=== PATIENT | female | born 1975 | race African-American/Black ===

== ENCOUNTER 2018-11-25 00:44 | Emergency (ER) | payer MEDICAID ==
[~2018-11-25] VITALS: Ht 167.6 cm; Wt 75.0 kg
[2018-11-25] MEDS ORDERED: CLONIDINE 0.1MG TABLET PO ONE (01:15)
[2018-11-25] MEDS ORDERED: LISINOPRIL 10MG TABLET PO ONE (01:15)
[2018-11-25] MEDS ORDERED: IBUPROFEN 600MG TABLET PO ONE (01:15)
[2018-11-25 01:21] LABS: HEMATOCRIT 33.7 % (36.0-48.0); HEMOGLOBIN 10.8 g/dL (12.0-16.0); MEAN CORPUSCULAR HEMOGLOBIN 24.5 pg (28.0-32.0); MEAN CORPUSCULAR VOLUME 76.6 fL (81.0-99.0); PLATELET 332 x1000/uL (130-400); RED CELL DISTRIBUTION WIDTH 23.2 % (11.6-14.6)
[2018-11-25 01:26] LABS: CHLORIDE 100 mEq/L (98-107)
[2018-11-25] MEDS ORDERED: POTASSIUM CHLORIDE 20MEQ TABLET SR PO NR (02:00)
[2018-11-25 02:57] VITALS: BP 153/97
== END 2018-11-25 03:03 | disposition home or self-care (01) ==
LOC: ER 00:44
DX: I16.0 Hypertensive urgency (principal); E03.9 Hypothyroidism, unspecified; Z91.14 Patient's other noncompliance with medication regimen
CPT/HCPCS: 36415; 85027; 99284